=== PATIENT | male | born 1970 | race Caucasian/White ===

== ENCOUNTER 2022-09-07 08:12 | Outpatient (CLI) | payer OTHER ==
[2022-09-07] MEDS ORDERED: Iopamidol-370 76% 500 ML 1 ML ONE (10:23)
== END 2022-09-07 08:13 | disposition home or self-care (01) ==
LOC: BICCT 08:12
PROVIDERS: ATTEND Nurse Practitioner
DX: J16.8 Pneumonia due to other specified infectious organisms (principal); J90 Pleural effusion, not elsewhere classified; J98.11 Atelectasis
CPT/HCPCS: 71260; Q9967